=== PATIENT | male | born 1955 | race Caucasian/White ===

== ENCOUNTER 2019-02-01 10:18 | Emergency (ER) | payer MEDICAID ==
[~2019-02-01] VITALS: Ht 172.7 cm; Wt 68.0 kg
[2019-02-01 12:10] VITALS: BP 132/67
== END 2019-02-01 12:20 | disposition home or self-care (01) ==
LOC: ER 10:22
DX: F41.9 Anxiety disorder, unspecified (principal); J02.9 Acute pharyngitis, unspecified; I10 Essential (primary) hypertension; E78.00 Pure hypercholesterolemia, unspecified
CPT/HCPCS: 99283; 99284

== ENCOUNTER 2024-01-29 05:55 | Emergency (ER) | payer MEDICAID ==
[~2024-01-29] VITALS: Ht 172.7 cm; Wt 66.0 kg
[2024-01-29 06:18] VITALS: BP 136/70; O2SAT 99
[2024-01-29 07:15] VITALS: PULSE 71; RESP 18; TEMP 98
[2024-01-29] MEDS: VISCOUS LIDOCAINE 2% 15 ML UDC PO NR (08:29)
[2024-01-29] MEDS: MAGNESIUM/ALUMINUM HYDROXIDE/SIMETHICONE 30ML UDC PO STA (08:29)
[2024-01-29] MEDS: FAMOTIDINE 20MG TABLET PO ONE (08:29)
[2024-01-29 09:03] LABS: BASOPHILS % 0.1 % (0.0-2.0); DIFFERENTIAL COMMENT 0; EOSINOPHILS % 0.5 % (0.0-5.0); HEMATOCRIT. 41.6 % (42.0-52.0); HEMOGLOBIN. 13.9 g/dL (14.0-18.0); LYMPHOCYTES % 7.7 % (20.0-50.0); MEAN CORPUSCULAR HEMOGLOBIN 33.5 pg (28.0-32.0); MEAN CORPUSCULAR HGB CONC 33.4 g/dL (31.0-37.0); MEAN CORPUSCULAR VOLUME 100.5 fL (80.0-94.0); MEAN PLATELET VOLUME 7.8 fl (7.4-10.4); MONOCYTES % 4.8 % (2.0-8.0); NEUTROPHILS % 86.9 % (40.0-76.0); PLATELET 306 x1000/uL (130-400); RED BLOOD CELL COUNT 4.14 mill/uL (4.7-6.1); RED CELL DISTRIBUTION WIDTH 13.7 % (11.6-14.6); WHITE BLOOD COUNT 7.2 x1000/uL (4.5-11.0)
[2024-01-29 09:10] LABS: CHLORIDE 104 mEq/L (98-107); POTASSIUM 3.5 mEq/L (3.5-5.1); SODIUM 136 mEq/L (136-145)
[2024-01-29 09:11] LABS: CARBON DIOXIDE 28 mEq/L (21-32)
[2024-01-29 09:12] LABS: CALCIUM 9.2 mg/dL (8.7-10.4)
[2024-01-29 09:16] LABS: CREATININE 0.6 mg/dL (0.6-1.3); GLUCOSE 103 mg/dL (70-105); UREA NITROGEN BLOOD 9 mg/dL (9-23)
[2024-01-29 09:18] LABS: ALANINE AMINOTRANSFERASE 28 IU/L (10-49); ALBUMIN 4.7 g/dL (3.2-4.8); ASPARTATE AMINOTRANSFERASE 37 IU/L (<34)
[2024-01-29 09:19] LABS: BILIRUBIN DIRECT 0.3 mg/dL (<=3.0); BILIRUBIN TOTAL 0.8 mg/dL (0.1-1.0); PROTEIN TOTAL 7.4 g/dL (6.0-8.3)
[2024-01-29 09:45] LABS: TROPONIN I HIGH SENSITIVITY < 4 ng/L (3.0-53)
[2024-01-29] MEDS ORDERED: MAG-55 MT (11:47)
[2024-01-29] MEDS ORDERED: FAMO-135 MT (11:47)
== END 2024-01-29 12:05 | disposition home or self-care (01) ==
LOC: ER 06:02
DX: K29.70 Gastritis, unspecified, without bleeding (principal); I10 Essential (primary) hypertension; Z98.890 Other specified postprocedural states
CPT/HCPCS: 36415; 71045; 80048; 80076; 84484; 85025; 93005; 99285